=== PATIENT | male | born 1940 | race Caucasian/White ===

== ENCOUNTER → 2019-07-11 | Day surgery (SDC) | payer MEDICARE ==
[~2019-07-11] MED LIST: BUPIVACAINE-EPI 0.5%-1:200000 MPF 30 ML VIAL. ONE; DEXAMETHASONE SOD PHOS 4 MG/ML VIAL ONE; FAMOTIDINE 20 MG/2 ML VIAL ONE; HYDR-3165 PO; HYDROcodone/APAP 7.5/325MG 1 TAB TABLET PO ONE; HYDROmorphone 2 MG/ML VIAL IV PRN; IV RINGERS,LACTATED 1000ML 1,000 ML IV SCH; LIDOCAINE 1% PF 2 ML VIAL. ID PRN; LIDOCAINE 2% PF 5 ML VIAL. ONE; MORPHINE SULFATE 2 MG/ML VIAL. IV PRN; ONDANSETRON PF 4 MG/2 ML VIAL. IV PRN; ONDANSETRON PF 4 MG/2 ML VIAL. ONE; PROCHLORPERAZINE 10 MG/2 ML VIAL. IV PRN; PROPOFOL 20 ML IV ONE; SEVOFLURANE 61 TO 120 MINUTES. IH ONE; SUCCINYLCHOLINE 200 MG/10 ML VIAL. ONE; fentaNYL PF VIAL 100 MCG/2 ML VIAL IV PRN; fentaNYL PF VIAL 100 MCG/2 ML VIAL ONE
--- NOTE | 2019-07-11 15:19 | EKG ---
[facility] [address] [place] [address] Test Date: 2019-07-11 Test Time: 14:58:52 Pat Name: JASON HATCH Department: Room: Gender: M Company Marker: : 1940 Requested By: GALE EGAN Order Number: [id number] Reading MD: Humberto Vidal Measurements Intervals [place] Rate: 78 P: -35 ID: [id number] QRS: 18 QRSD: 90 T: 24 QT: 400 QTc: 460 Interpretive Statements SINUS RHYTHM Electronically Signed On 07-12-2019 11:16:45 CDT by Humberto Vidal
[2019-07-11 15:20] LABS: BASO % 0 % (0-3); EOS # 0.1 x10^3/uL (0.0-0.7); EOS % 1 % (0-3); HEMATOCRIT 43.4 % (39.0-53.0); HEMOGLOBIN 14.8 g/dL (13.0-17.5); LYMPH # 1.3 x10^3/uL (1.0-4.8); LYMPH % 21 % (24-48); MEAN CORPUSCULAR HEMOGLOBIN 30 pg (25-35); MEAN CORPUSCULAR HGB CONC 34 g/dL (31-37); MEAN CORPUSCULAR VOLUME 88 fL (79-100); MONO # 0.4 x10^3/uL (0.0-1.1); MONO % 7 % (0-9); NEUT # 4.6 x10^3/uL (1.8-7.7); NEUT % 71 % (31-73); PLATELET COUNT 231 x10^3/uL (140-400); RED BLOOD COUNT 4.92 x10^6/uL (4.30-5.70); RED CELL DISTRIBUTION WIDTH 14.5 % (11.5-14.5); WHITE BLOOD COUNT 6.5 x10^3/uL (4.0-11.0)
[2019-07-11 15:31] LABS: CALCIUM 8.5 mg/dL (8.5-10.1); CREATININE 0.8 mg/dL (0.7-1.3); GFR 93.7; POTASSIUM 3.8 mmol/L (3.5-5.1)
--- NOTE | 2019-07-11 18:48 | DISCH ---
DISCHARGE INSTRUCTIONS Condition on Discharge Condition on Discharge: Stable Activity After Discharge Activity Instructions for Disc: Progressive ambulation (crutches or walker as needed) Weight Bearing Status after Di: Touch down weight bearing (Can put weight of leg down only) Diet after Discharge Diet after Discharge: Regular Wound Incision Care Wound/Incision Care: Ice to area for comfort, Keep wound elevated, Do not change dressing (keep dry in shower) Contacting the DRMatthew after DC Call your doctor for: Concerns you may have Follow-Up Follow up with: Dr. Bhatti 2 weeks GALE BHATTI MD Jul 11, 2019 18:48
[2019-07-11 19:01] VITALS: BP 157/77
--- NOTE | 2019-07-11 22:18 | PDOC4 ---
Operative Note Operative Note Date of surgery: 07/11/2019 Preoperative diagnosis: Right ankle fracture dislocation Postoperative diagnosis: Same with displaced right distal fibula fracture and lateral talar instability without syndesmosis disruption Operative procedure: Operative reduction right distal fibula fracture Surgeon: Davy Ignition Mechanic: Randy Mobley nurse practitioner Anesthesia: General Estimated blood loss: 10 cc Complications: None Operative indications: Jayant is a 79-year-old male that had undergone right ankle fracture dislocation while out of town and underwent closed reduction and splinting at an outside facility and now presents for more definitive treatment. He has a displaced lateral malleolus fracture with lateral talar instability. I had gone over with him the on desirability of the instability and the poor healing expected without operative intervention. We talked about the surgical risks of possible infection nerve or blood vessel damage nonhealing medical or other anesthetic complications among others and generally the recovery process expected and restrictions. All his questions were answered he wishes to proceed with surgical evaluation and treatment Operative text: Patient was identified procedure verified patient placed in the supine position on the operating table. After adequate amounts of general anesthesia were administered the right lower extremity was prepped and draped in standard sterile fashion with a thigh tourniquet. After timeout was performed patient procedure identified and verified the right lower extremity was exsanguinated by elevation and tourniquet inflated to 300 mmHg. An incision was made over the lateral malleolus which was subperiosteal dissection and anatomic reduction was obtained and a 6-hole Joy distal fibular locking plate was placed shaft screws were first placed and then distal locking screws placed all under fluoroscopic guidance with excellent anatomic reduction obtained in multiple fluoroscopic views and hardware placement was verified as well as anatomic reduction of the ankle joint mortise even under stress views. No synde smotic fixation was therefore required. There irrigation carried out normal saline solution subcutaneous closure with buried Vicryl suture skin closure with don sterile dressings were applied followed by a well-padded posterior splint patient was returned to recovery room in stable condition having tolerated procedure well. Toes were noted be warm pink following deflation of the tourniquet. Randy Mobley nurse practitioner was present for the procedure and assisted in the prepping draping retraction skin closure and dressing splint placement GALE EGAN MD Jul 11, 2019 22:18
== END ==
LOC: SURG 14:29
PROVIDERS: ATTEND Orthopaedic Surgery
DX: S82.61XA Displaced fracture of lateral malleolus of right fibula, initial encounter for closed fracture (principal); E66.3 Overweight; Z68.28 Body mass index [BMI] 28.0-28.9, adult; X58.XXXA Exposure to other specified factors, initial encounter; Y93.89 Activity, other specified; Y92.89 Other specified places as the place of occurrence of the external cause; Y99.8 Other external cause status
CPT/HCPCS: 27792; 36415; 76000; 80048; 85025; 93005; A7015; C1713; J0330; J0696; J1100; J2405; J2704; J3010; J3490